=== PATIENT | male | born 1975 | race Caucasian/White ===

== ENCOUNTER → 2019-03-10 | Day surgery (SDC) | payer OTHER ==
[~2019-03-10] MED LIST: BENTYL PO; CRESTOR10 MG PO; FENTANYL CITRATE/PF 100MCG/2 ML INJ ONE; HYOSCYAMINE 0.125 MG TAB ONE; MIDAZOLAM HCL 2 MG/2 ML VIAL ONE; MULTI-VITAMIN1 EACH PO; PANTOPRAZOLE SO40 MG PO; PROPOFOL IV EMULSION 10 MG/ML 50 ML VIAL ONE
--- NOTE | 2019-03-10 07:10 | NUR ---
SPIRITUAL CARE - Pre-Surgery Assessment: Pt in bed. Pt's at bedside. Pt identifies as Rastafari. Pt reported supportive attention from family and friends. Intervention: I provided pastoral presence, hospitality, sympathetic listening, and prayer. I acquainted pt with availability of multiple wire sawyer while hospitalized. Outcome: Pt expressed appreciation for visit. No need for follow up indicated at this time. [facility] Spiritual Care Department O: [phone] Pager: [phone] ([phone] number calling from)
[2019-03-10 11:55] VITALS: BP 125/82
--- NOTE | 2019-03-10 12:05 | Operative Report ---
DATE OF PROCEDURE: 03/10/2019 SURGEON: Eric Villalpando MD PROCEDURE: Colonoscopy with polypectomy and biopsies. INDICATIONS FOR COLONOSCOPY: Rectal pain, bright red blood per rectum, rectal discharge. MEDICATION: The patient was done under MAC, please see anesthesiologist's note. PROCEDURE IN DETAIL: With the patient in left lateral decubitus position, a flexible fiberoptic Olympus colonoscope was inserted into the rectum with ease and advanced all the way to the cecum. A minute polyp was hot biopsied from the cecum. The ileocecal valve was intubated and the scope was advanced into the terminal ileum. Biopsies were obtained. The scope was then withdrawn back into the colon. Mucosa overlying the ascending colon appeared to be within normal limits. One polyp was snared from the transverse colon. One polyp was hot biopsied from the proximal descending colon. The mucosa overlying the left colon revealed some patchy mild inflammatory changes and random biopsies were obtained. Similar inflammatory findings were noted in the rectum and biopsies were obtained. The scope was then retroflexed into the distal rectum and small internal hemorrhoids were noted, none of which was actively bleeding. The scope was then straightened out, it was subsequently withdrawn after securing an adequate stool specimen that was sent for the appropriate stool studies. The patient tolerated procedure well. A couple of anal fissures were noted on the way out. There was no active bleeding. IMPRESSION: 1. Cecal polyp, hot biopsied. 2. Transverse colon polyp, snared. 3. Descending colon polyp, hot biopsied. 4. Mild patchy left-sided colitis. 5. Proctitis, biopsied. 6. Internal hemorrhoids, none actively bleeding. 7. Anal fissures. PLAN: Follow up histology. Follow up stool studies. Check IBD panel, CRP and sedimentation rate. Start Anucort-HC suppositories b.i.d. x10 days then p.r.n. and Canasa suppositories 1000 mg at bedtime. The patient might benefit from a followup colonoscopy in 3 years. Eric Villalpando MD [facility] [place]/[facility]ELY /[id number] cc: Gustabo Farias, DO
[2019-03-10 12:56] LABS: ALANINE AMINOTRANSFERASE 83 IU/L (0-55); ALBUMIN 4.1 g/dL (3.5-5.0); ALBUMIN/GLOBULIN RATIO 1.5 (0.8-2.0); ALKALINE PHOSPHATASE 54 IU/L (40-150); ANION GAP 12.5 mmol/L (8-16); BLOOD UREA NITROGEN 16 mg/dL (7-26); BUN/CREATININE RATIO 13 (6-25); CALCIUM 9.3 mg/dL (8.4-10.2); CARBON DIOXIDE 27 mmol/L (22-29); CHLORIDE 103 mmol/L (98-107); CREATININE, SERUM 1.28 mg/dL (0.72-1.25); EST GLOMERULAR FILTRATION RATE > 60 ML/MIN (60-); GLUCOSE 96 mg/dL (74-118); POTASSIUM 4.5 mmol/L (3.5-5.1); SODIUM 138 mmol/L (136-145)
[2019-03-10 13:13] LABS: WBC,FECAL (FECAL LACTOFERRIN) POSITIVE (NEGATIVE)
[2019-03-11 12:38] LABS: C DIFFICILE TOXIN A&B AMP PROB NEGATIVE (NEGATIVE)
== END | disposition home or self-care (01) ==
LOC: OR 05:54
PROVIDERS: ATTEND Internal Medicine Gastroenterology
DX: D12.4 Benign neoplasm of descending colon (principal); D12.3 Benign neoplasm of transverse colon; D12.0 Benign neoplasm of cecum; K62.89 Other specified diseases of anus and rectum; K62.5 Hemorrhage of anus and rectum; K21.9 Gastro-esophageal reflux disease without esophagitis; E78.5 Hyperlipidemia, unspecified; K63.5 Polyp of colon; K51.50 Left sided colitis without complications; K64.8 Other hemorrhoids; K60.2 Anal fissure, unspecified
CPT/HCPCS: 36415; 45384; 45385; 80053; 83630; 83993; 85651; 86140; 86256; 86671; 87045; 87177; 87328; 87493; 93005; J2250; J2704; J3010; 45378; 45380

== ENCOUNTER → 2019-04-23 | Day surgery (SDC) | payer OTHER ==
[2019-04-16 12:29] LABS: BASOPHILS % 0.6 % (0.0-1.0); EOSINOPHILS # (AUTO) 0.2 (0.0-0.4); EOSINOPHILS % 3.2 % (0.0-6.0); HEMATOCRIT 47.9 % (38.2-49.6); LYMPHOCYTES # (AUTO) 1.4 (1.0-3.2); LYMPHOCYTES % 28.5 % (18.0-39.1); MEAN CORPUSCULAR HEMOGLOBIN 27.4 pg (28-32); MEAN CORPUSCULAR HGB CONC 33.4 g/dL (31-35); MEAN CORPUSCULAR VOLUME 82.2 fL (81-99); MONOCYTES # (AUTO) 0.4 (0.2-0.8); MONOCYTES % 8.5 % (4.4-11.3); NEUTROPHILS % 58.8 % (38.7-80.0); PLATELET COUNT 263 x10e3/uL (140-360); RED BLOOD COUNT 5.83 x10e6/uL (4.3-5.7); RED CELL DISTRIBUTION WIDTH 12.8 % (11.7-14.4)
[2019-04-16 13:00] LABS: ANION GAP 14.4 mmol/L (8-16); BLOOD UREA NITROGEN 23 mg/dL (7-26); BUN/CREATININE RATIO 19 (6-25); CALCIUM 10.4 mg/dL (8.4-10.2); CARBON DIOXIDE 28 mmol/L (22-29); CHLORIDE 104 mmol/L (98-107); CREATININE, SERUM 1.18 mg/dL (0.72-1.25); EST GLOMERULAR FILTRATION RATE > 60 ML/MIN (60-); GLUCOSE 100 mg/dL (74-118); POTASSIUM 4.4 mmol/L (3.5-5.1); SODIUM 142 mmol/L (136-145)
[~2019-04-23] MED LIST changes: +ACETAMINOPHEN 1000 MG/100 ML 100 ML IV ONE; +ACETAMINOPHEN 1000 MG/100 ML IV ONE; +BUPIVACAINE 0.25%/EPI 30ML SDV INJ ONE; +DEXAMETHASONE SOD PHOS INJ 4 MG/ML VIAL ONE; +HYDROCODONE/APAP 7.5MG-325MG 1 EA TAB ONE; -HYOSCYAMINE 0.125 MG TAB ONE; +LIDOCAINE HCL 1% LOCAL INJ 20 ML VIAL ONE; +LIDOCAINE HCL 2% 30 ML TUBE ONE; +LIDOCAINE HCL 2% LOCAL INJ 5 ML SDV VIAL INJ ONE; +ONDANSETRON HCL INJ 2MG/ML 2ML 2 MG/ML VIAL ONE; +PROPOFOL IV EMULSION 10 MG/ML 20 ML VIAL ONE; -PROPOFOL IV EMULSION 10 MG/ML 50 ML VIAL ONE; +SEVOFLURANE INHAL SOLN 250 ML PEN BTL ONE
--- OUTSIDE RECORDS SUMMARY | 2019-04-23 07:08 | XMS REPORT ---
Author Author [facility] Address Unknown Phone Unavailable Care Team Providers Care Surfacing Technician Name Role Phone Celina URIARTE Unavailable Unavailable Problems This patient has no known problems. Allergies, Adverse Reactions, Alerts This patient has no known allergies or adverse reactions. Medications This patient has no known medications. Results Test Description Test Time Test Comments Text Results Atomic Results Result Comments US TESTICULAR DOPPLER LTD 2018-04-12 13:15:00 [place] [address] Patient Name: RENAY BE IV MR #: [id number] : 1975 Age/Sex: 43/M Req #: [id number] Adm Physician: Ordered by: SABINO JERONIMO NP Report #: [id number] Location: ER Room/Bed: Procedure: [id number] US/US TESTICULAR DOPPLER LTD Exam Date: Exam Time: REPORT STATUS: Signed EXAM: Scrotal Ultrasound INDICATION: Pain COMPARISON: None TECHNIQUE: Transverse and longitudinal images were obtained of the scrotum with grayscale imaging, color Doppler and spectral waveform analysis. FINDINGS: Right testis: Size: measures 4.8 x 2.7 x 4.5 cm, normal in size. Echogenicity: Normal Mass/Cysts: None Left testis: Size: measures 5.1 x 2.8 x 3.8 cm, normal in size. Echogenicity: Normal Mass/Cysts: None Epididymis: Normal in size without increased vascularity. Apparent increase in vascularity adjacent to the right epidiymis is felt to be related to adjacent varicocele. There are right sided epididymal cysts, the largest measuring up to 0.5 cm and a smaller one inferiorly measuring up to 0.4 cm. Extratesticular: Masses: None Fluid collections: Small right hydrocele. Varicocele: Bilateral varicocele are noted, increased flow is demonstrated on Valsalva maneuver Doppler: Normal arterial flow to both testes and symmetrical flow on color Doppler evaluation is seen. No evidence of testicular torsion. IMPRESSION: No sonographic evidence of testicular torsion. Bilateral varicoceles. Small right hydrocele. Incidental right epididymal cysts. Signed by: Dr. Steve Hayden MD on 04/12/2018 1:24 PM Dictated By: STEVE HAYDEN MD 1324 Transcribed By: ASIA on 04/12/18 1324 COPY TO: SABINO JERONIMO NP TESTICULAR 2018-04-12 13:15:00 [place] [address] Patient Name: RENAY BE IV MR #: [id number] : 1975 Age/Sex: 43/M [id number] Req #: [id number] Adm Physician: Ordered by: SABINO JERONIMO NP Report #: [id number] Location: ER Room/Bed: Procedure: [id number] US/US TESTICULAR Exam Date: Exam Time: REPORT STATUS: Signed EXAM: Scrotal Ultrasound INDICATION: Pain COMPARISON: None TECHNIQUE: Transverse and longitudinal images were obtained of the scrotum with grayscale imaging, color Doppler and spectral waveform analysis. FINDINGS: Right testis: Size: measures 4.8 x 2.7 x 4.5 cm, normal in size. Echogenicity: Normal Mass/Cysts: None Left testis: Size: measures 5.1 x 2.8 x 3.8 cm, normal in size. Echogenicity: Normal Mass/Cysts: None Epididymis: Normal in size without increased vascularity. Apparent increase in vascularity adjacent to the right epidiymis is felt to be related to adjacent varicocele. There are right sided epididymal cysts, the largest measuring up to 0.5 cm and a smaller one inferiorly measuring up to 0.4 cm. Extratesticular: Masses: None Fluid collections: Small right hydrocele. Varicocele: Bilateral varicocele are noted, increased flow is demonstrated on Valsalva maneuver Doppler: Normal arterial flow to both testes and symmetrical flow on color Doppler evaluation is seen. No evidence of testicular torsion.
[2019-04-23 12:23] VITALS: BP 120/76
--- NOTE | 2019-04-23 13:04 | Operative Report ---
DATE OF PROCEDURE: 04/23/2019 SURGEON: Zachary Marie MD PREOPERATIVE DIAGNOSES: Rectal fissure and internal hemorrhoids. POSTOPERATIVE DIAGNOSES: Rectal fissure and internal hemorrhoids. OPERATIONS PERFORMED: Sigmoidoscopy. Left lateral partial internal, superficial sphincterotomy. Fissurectomy. Hemorrhoidectomy. ANESTHESIA: General. COMPLICATIONS: None. ESTIMATED BLOOD LOSS: Minimal DESCRIPTION OF PROCEDURE: With the patient lying in bed in the lithotomy position, under good general anesthesia, the perineum was prepped and a rigid sigmoidoscope was then introduced slowly and carefully advanced to 25 cm. All the excess of the abdomen was evacuated. Examination of the rectal mucosa revealed no polypoid lesions or masses at the level of the anal verge. 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 There was also two groups of hemorrhoids at the 12 o'clock position and the 8 o'clock position. There was a small group at the 4 o'clock position. The sigmoidoscope was then removed and the perineum was prepped with Betadine solution and draped in the usual manner. A complete anorectal block was then performed with 0.25% Marcaine and 1% lidocaine, mixed in equal parts. An incision was made at the 3 o'clock position and the superficial fibers of the internal sphincter were then delivered and divided with the cautery, this gave us a nice release. The incision was then closed with interrupted sutures of 3-0 chromic. After this was done, the hemorrhoid at the 12 o'clock and the 4 o'clock position were suture-ligated with 0 chromic suture. There was no significant external component, so no resection of the external component was performed. Once this was done, the hemostasis was ascertained. Gelfoam pack impregnated with Xylocaine was placed. A dressing was applied. The sponge, lap, and needle counts were correct. The patient tolerated the procedure well and returned to the recovery room in stable condition. Zachary Marie MD [facility] /[id number]
== END | disposition home or self-care (01) ==
LOC: OR 07:05
PROVIDERS: ATTEND Surgery
DX: K60.2 Anal fissure, unspecified (principal); K64.8 Other hemorrhoids; K21.9 Gastro-esophageal reflux disease without esophagitis; Z01.812 Encounter for preprocedural laboratory examination
CPT/HCPCS: 36415; 46200; 46946; 80048; 85025; J0131; J1100; J2001 ×2; J2250; J2405; J2704; J3010